=== PATIENT | female | born 1975 | race African-American/Black ===

== ENCOUNTER 2019-03-06 09:13 | Emergency (ER) | payer OTHER ==
[~2019-03-06] VITALS: Ht 175.3 cm; Wt 113.4 kg
[~2019-03-06 09:13] MED LIST: CIPROFLOXACIN500 M1 PO; GABAPENTIN 100100 MG PO; LEVEMIR; MECLIZINE 25 MG25 M1 PO; MICARDIS 20MG T20 M1 PO; PERCOCET 5-3251 EACH PO; PHENERGAN 25 MG25 M1 PO; PRENATAL; VALIUM5 MG PO; ZOFRAN ODT4 MG PO
[2019-03-06] MEDS ORDERED: ZANTAC 150MG T150 MG PO (09:42)
[2019-03-06] MEDS ORDERED: REGLAN 10 MG TA10 MG PO (09:43)
[2019-03-06 14:06] VITALS: BP 163/97
--- NOTE | 2019-03-06 15:21 | EKG ---
[place] [address] [facility] [place] [address] ELECTROCARDIOGRAM REPORT Name: JESSE PRYOR [id number] ������������������ Admission: 03/06/19 ������������������ Attend Phys: Discharge: 03/06/19 ������������������ Date of : 75 Report #: [id number] ����������������������������������������������������������������� [id number] THIS REPORT FOR: //name// [facility] ED Test Date: 2019-03-06 Test Time: 09:20:10 Pat Name: JESSE PRYOR Department: Room: Gender: F Yarn Dyer: HIWOT : 1975 Requested By: Ella Rowland Order Number: [id number] MD: Oleg Almonte Measurements Intervals [place] Rate: 91 P: 58 WV: 195 QRS: 7 QRSD: 109 T: 26 QT: 375 QTc: 462 Interpretive Statements Sinus rhythm Poor R wave progression Compared to ECG 04/03/2011 15:44:53 Poor R wave progression is now present Electronically Signed On 03-06-2019 15:21:42 CDT by Oleg Almonte [email or web address] ��������������������������������������������� <ELECTRONICALLY SIGNED> ���������������������������������������� By: Oleg Almonte MD, [facility] ��������������������������������������������� 03/06/19 1521 D: [id number] Oleg Almonte MD, FAC /EPI
== END 2019-03-06 14:24 | disposition home or self-care (01) ==
LOC: ER 09:13
DX: M79.10 Myalgia, unspecified site (principal); E11.22 Type 2 diabetes mellitus with diabetic chronic kidney disease; I12.0 Hypertensive chronic kidney disease with stage 5 chronic kidney disease or end stage renal disease; N18.6 End stage renal disease; E78.5 Hyperlipidemia, unspecified; Z99.2 Dependence on renal dialysis; Z79.4 Long term (current) use of insulin; Z88.0 Allergy status to penicillin; Z88.5 Allergy status to narcotic agent

== ENCOUNTER 2020-01-22 07:28 | Emergency (ER) | payer OTHER ==
[~2020-01-22] VITALS: Ht 175.3 cm; Wt 108.9 kg
--- NOTE | ~2020-01-22 | EMS ---
[place] [id number] EMS Patient Care Report Name: JESSE PRYOR Room #: [facility] Angela#: [id number] Admission: 01/22/20 Attend Phys: Discharge: Date of : 75 Report #: [id number] THIS REPORT FOR: //name// Report Transmitted: 01/22/2020 07:25 EMS Care Summary [place], [place]/[facility] Incident [id number] @ 01/22/2020 06:50 Incident [address] [place] [address] Patient JESSE PRYOR Female, 44 Years 1975 Patient Address [address] [place] [address] Patient History Diabetes,Neuropathy,Dialysis, Patient Allergies Penicillin allergy,Tramadol, Patient Medications Labetalol, Trazodone, Insulin, Chief Complaint leg pain Disposition Transported No Lights/[place] Dispatch Reason Diabetic Problem Transported To [facility] Narrative PT STATES THAT PT HAS LEG PAIN AND THAT PT PAIN IS VERY RESEMBLANT TO WHEN PT HAD HIGH POTATSIUM. PT STATES THAT PT HAS MISSED 2X DIALYSIS. PT STATES THAT PT GOES MWF. PT STATES THAT PT IS UNABLE TO STAND BECAUSE OF THE PAIN. PT STATE THAT PT HAD DIARREHA THAT IS WHY PT MISSED DIALYSIS. PT HAS NO OTHER [address] [address] EMS Patient Care Report Name: JESSE PRYOR Room #: [facility] Angela#: [id number] Admission: 01/22/20 Attend Phys: Discharge: Date of : 75 Report #: [id number] COMPLIANTS. PTWAS FOUND SITTING IN A SEMI-VITALE POSITION IN PT'S ROOM. PT SPOKE IN FULL AND COMPLETE SENTENCES. PT IS UNABLE TO STAND AND PIVOT WITHOUT ASSISTANCE. PT HAS NO OTHER OBVIOUS ABNORMALITIES. Initial Vitals @07:11P: 81,BP: 78/46,SpO2: 96, @07:09P: 81,R: 18,BP: 55/12,Pain: 0/10,GCS: 15,CO: 0,SpO2: 96,Revised Trauma: 10, @07:14P: 80,R: 18,BP: 174/109,Pain: 10/10,GCS: 15,SpO2: 94,Revised Trauma: 12, Assessments @07:38MENTAL:Place Oriented,Time Oriented,Person Oriented,Event Oriented,SKIN:HEENT:Eyes: Right: Blind,Eyes: Left: Blind,Head/Face: No Abnormalities,Neck/Airway: No Abnormalities,LUNG SOUNDS:General: No Abnormalities,ABDOMEN:General: No Abnormalities,PELVIS//GI:EXTREMITIES:Capillary Refill: Right Upper: < 2 Sec,Left Arm: No Abnormalities,Right Arm: No Abnormalities,Left Leg: No Abnormalities,Right Leg: No Abnormalities,PULSE:Radial: 2+ Normal,NEURO: Impression Extremity Pain Procedures @07:38ALS AssessmentResponse: UnchangedSucceeded Timeline 06:48,Call Received 06:48,Dispatch Notified 06:50,Dispatched 06:51,En Route 06:56,On Scene 06:57,At Patient 07:07,Depart Scene 07:09,BP: 55/12 M,PULSE: 81,RR: 18 R,SPO2: 96 Ox,ETCO2: ,BG: ,PAIN: 0,GCS: 15, 07:11,BP: 78/46 M,PULSE: 81,RR: R,SPO2: 96 Ox,ETCO2: ,BG: ,PAIN: ,GCS: , 07:14,BP: 174/109 M,PULSE: 80,RR: 18 R,SPO2: 94 Ox,ETCO2: ,BG: ,PAIN: 10,GCS: 15, 07:20,At Destination 07:38,ALS Assessment,Response: UnchangedSucceeded, 07:46,Call Closed Disclaimer [email or web address] Copyright 2020 [employer] This EMS Care Summary contains data elements from the applicable legal record [address] [address] EMS Patient Care Report Name: ROYAJESSE Room #: [facility].#: [id number] Admission: 01/22/20 Attend Phys: Discharge: Date of : 75 Report #: [id number] (which may be displayed differently). It is designed to provide pertinent information for the following purposes: continuity of care, clinical quality, and state data reporting. The complete legal record is available to ED staff and administrators of the receiving hospital in [employer]'s Patient Tracker. All data is provided "as is."
[~2020-01-22 07:28] MED LIST changes: +REGLAN 10 MG TA10 MG PO; +ZANTAC 150MG T150 MG PO
[2020-01-22 10:05] VITALS: BP 162/88
== END 2020-01-22 10:37 | disposition home or self-care (01) ==
LOC: ER 07:28
DX: M79.18 Myalgia, other site (principal); M62.81 Muscle weakness (generalized); I10 Essential (primary) hypertension; E78.5 Hyperlipidemia, unspecified; E11.9 Type 2 diabetes mellitus without complications; Z91.14 Patient's other noncompliance with medication regimen; Z88.5 Allergy status to narcotic agent; Z88.0 Allergy status to penicillin; Z88.6 Allergy status to analgesic agent; Z99.2 Dependence on renal dialysis